=== PATIENT | female | born 1995 | race Caucasian/White ===

== ENCOUNTER 2017-05-21 23:05 | Emergency (ER) | payer OTHER ==
[~2017-05-21] VITALS: Ht 157.5 cm; Wt 68.0 kg
[2017-05-21 23:27] VITALS: Ht 157.5 cm; Wt 68.0 kg
[2017-05-22 01:08] VITALS: BP 128/56
== END 2017-05-22 01:08 | disposition home or self-care (01) ==
LOC: ED 23:05
DX: A38.9 Scarlet fever, uncomplicated (principal); E03.9 Hypothyroidism, unspecified
CPT/HCPCS: J0696